=== PATIENT | female | born 1945 | race Caucasian/White ===

== ENCOUNTER → 2016-05-21 | Outpatient (CLI) | payer MEDICARE ==
[2015-09-22 11:56] VITALS: BP 105/66
[~2016-05-21] MED LIST: ACET12.53 PO; AMLO5TAB2 PO; ATOR40TA59 PO; LISI-334 PO; NITR0.4T SL; TIZA4TAB PO; TRAM50TA PO; VENL150C PO
--- NOTE | 2016-05-21 14:27 | RAD ---
Left shoulder, 3 views, 05/21/2016: History: Shoulder pain after a fall No fracture or dislocation is identified. There is moderate degenerative change at the glenohumeral articulation. There is mild degenerative change at the AC joint. IMPRESSION: 1. Degenerative changes. 2. No acute bony abnormality is detected.
== END | disposition home or self-care (01) ==
LOC: DXRADRC 11:33
PROVIDERS: ATTEND Physician Assistant Medical
DX: M25.512 Pain in left shoulder (principal)
CPT/HCPCS: 73030

== ENCOUNTER 2017-06-26 19:57 | Emergency (ER) | payer MEDICARE ==
[~2017-06-26] VITALS: Ht 157.5 cm; Wt 69.3 kg
--- NOTE | 2017-06-26 20:06 | ED.ADGEN ---
Past History Past Medical History: CAD, Dementia, Depression, High Cholesterol, Hypertension , Other Past Surgical History: Appendectomy, Cholecystectomy, Coronary Bypass Surgery, Hysterectomy Alcohol Use: None Drug Use: None Adult General Chief Complaint Chief Complaint " .. I don't know... what are we going to do..." Pt. " We were cleaning her up, and changed her underwear... in the process after we cleaned her up.. she passed out.. but I did not let her fall... but we let her sit down... and she was still to weak to stand up...." ".. she get confused off and on.. but she did not really rebound...".. " We know she got bad peripheral vascular disease... and she had her Rt carotid dilated. with a balloon... and they have been keeping her off her clotting meds.. because Dr. Benavidez.. is to do dilation of her arms and legs... They never can get blood pressures on her because her circulation is so bad... ".. " She also had this diarrhea the last few days...She just seems so weak.. " " What ever happens we don't want her admitted here or [place]... Dad there...so she needs to go to [facility]. ...or ... that where she has to go..."Son. HPI HPI Patient is a 71 year old female who presents with above hx and complaints of mental status change and weakness. Patient has had diarrhea last few days. Patient has extensive medical history with coronary artery bypass, CHF, renal insufficiency, urinary tract infections, multiple areas of arterial stenosis of arms and legs. Patient does have a history of DVTs. Is recently undergone angioplasty of right carotid. Patient recently has been taken off her anticoagulant pending angioplasties of arms and legs. Patient does have history of intermittent episodes of mental status changes per her son's. No recent travel. No history of ill contacts. Normally follows with [facility], Dr. Bynum, Dr. Vinson. Pt. family insistent they did not want her admitted here, but wanted pt to go to or [facility]. No hx of bad foods. Pt had poor intake the last 48 hrs. Sons are her care takers and she lives at home. Review of Systems Review of Systems Constitutional: Denies fever or chills [] Eyes: Denies change in visual acuity, redness, or eye pain [] HENT: Denies nasal congestion or sore throat [] Respiratory: Denies cough or shortness of breath [] Cardiovascular: No additional information not addressed in HPI [] GI: Denies abdominal pain, nausea, vomiting, bloody stools or diarrhea [] : Denies dysuria or hematuria [] Musculoskeletal: Denies back pain or joint pain [. Patient complains of generalized weakness] Integument: Denies rash or skin lesions [] Neurologic: Denies headache, focal weakness or sensory changes [] Endocrine: Denies polyuria or polydipsia [] All other systems were reviewed and found to be within normal limits, except as documented in this note. Family History Family History Noncontributory Current Medications Current Medications Current Medications Medications (Trade) Dose Ordered Sig/Caryn Start Time Stop Time Status Last Admin Dose Admin Ceftriaxone Sodium 1 gm/ Sodium Chloride 50 ml @ 100 mls/hr 1X ONCE 06/26/17 23:30 06/26/17 23:59 Cancel Ceftriaxone Sodium (Rocephin) 1 gm 1X ONCE 06/26/17 23:30 06/26/17 23:31 DC 06/26/17 23:32 1 GM Lactated Ringer's 1,000 ml @ 75 mls/hr 1X ONCE 06/26/17 20:15 06/27/17 01:00 DC 06/26/17 22:43 75 MLS/HR Magnesium Sulfate 50 ml @ 25 mls/hr 1X ONCE 06/26/17 22:30 06/27/17 00:29 DC 06/26/17 22:44 25 MLS/HR Ondansetron HCl (Zofran Odt) 8 mg 1X ONCE 06/26/17 23:00 06/26/17 23:01 DC 06/26/17 22:55 8 MG Potassium Chloride (KCl Oral Soln) 40 meq 1X ONCE 06/26/17 22:30 06/26/17 22:31 DC 06/26/17 22:49 40 MEQ Sodium Chloride 50 ml @ As Directed STK-MED ONCE 06/26/17 23:23 06/26/17 23:24 DC See nursing for home meds Allergies Allergies Allergies Coded Allergies Type Severity Reaction Last Updated Verified iodine Allergy Severe sob 06/26/17 Yes morphine Allergy Intermediate gi/rash 06/26/17 Yes Physical Exam Physical Exam Constitutional: no acute distress, non-toxic appearance. [] HENT: Normocephalic, atraumatic, bilateral external ears normal, oropharynx moist, no oral exudates, nose normal. []Poor dentition Eyes: PERRLA, EOMI, conjunctiva normal, no discharge. [] Neck: Normal range of motion, no tenderness, supple, no stridor. No bruits appreciated Cardiovascular: Bradycardia Heart rate regular rhythm, no murmur []PMI to the left Lungs & Thorax: Bilateral breath sounds with a few scattered wheezes with breath sounds equal at apexes on auscultation []midline sternotomy scar Abdomen: Bowel sounds are hyperactive, soft, no tenderness, no masses, no pulsatile masses. []Multiple old scars. Skin: Warm, dry, no erythema, no rash. Poor turgor. Sacral breakdown. Capillary refill more than 3 second in hand and feet. Very min. pulse in feet and wrist- but equal to each other. Back: No tenderness, no CVA tenderness. [] Extremities: No tenderness, no cyanosis, no clubbing, ROM intact, no edema. 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 Moves all ext. on command. Psychologic: Affect anxious, judgement normal, mood depressed Current Patient Data Vital Signs Vital Signs Date Time Temp Pulse Resp B/P (MAP) Pulse Ox O2 Delivery O2 Flow Rate FiO2 06/27/17 00:04 78 24 85/48 (60) 98 Nasal Cannula 2.0 06/26/17 20:28 97.9 Lab Results Laboratory Tests Test 06/26/17 21:00 White Blood Count 12.5 x10^3/uL (4.0-11.0) H Red Blood Count 4.31 x10^6/uL (3.50-5.40) Hemoglobin 12.2 g/dL (12.0-15.5) Hematocrit 36.0 % (36.0-47.0) Mean Corpuscular Volume 84 fL (79-100) Mean Corpuscular Hemoglobin 28 pg (25-35) Mean Corpuscular Hemoglobin Concent 34 g/dL (31-37) Red Cell Distribution Width 20.4 % (11.5-14.5) H Platelet Count 403 x10^3/uL (140-400) H Neutrophils (%) (Auto) 87 % (31-73) H Lymphocytes (%) (Auto) 8 % (24-48) L Monocytes (%) (Auto) 5 % (0-9) Eosinophils (%) (Auto) 0 % (0-3) Basophils (%) (Auto) 0 % (0-3) Neutrophils # (Auto) 10.8 x10^3uL (1.8-7.7) H Lymphocytes # (Auto) 1.0 x10^3/uL (1.0-4.8) Monocytes # (Auto) 0.6 x10^3/uL (0.0-1.1) Eosinophils # (Auto) 0.0 x10^3/uL (0.0-0.7) Basophils # (Auto) 0.0 x10^3/uL (0.0-0.2) Toxic Vacuolation Mod Platelet Estimate Adequate (ADEQUATE) Polychromasia Mod Anisocytosis Mod Prothrombin Time 11.0 SEC (9.4-11.4) Prothrombin Time INR 1.1 (0.9-1.1) PTT 23 SEC (23-33) Urine Collection Type Unknown Urine Color Yellow Urine Clarity Cloudy Urine pH 6.0 Urine Specific [place] 1.015 Urine Protein Neg (NEG-TRACE) Urine Glucose (UA) Neg mg/dL (NEG) Urine Ketones (Stick) Neg mg/dL (NEG) Urine Blood Neg (NEG) Urine Nitrite Pos (NEG) Urine Bilirubin Neg (NEG) Urine Urobilinogen Dipstick 1 mg/dL (0.2 mg/dL) Urine Leukocyte Esterase Trace (NEG) Urine RBC Occ /HPF (0-2) Urine WBC 11-20 /HPF (0-4) Urine Squamous Epithelial Cells Occ /LPF Urine Bacteria Many /HPF (0-FEW) Sodium Level 134 mmol/L (136-145) L Potassium Level 2.2 mmol/L (3.5-5.1) *L Chloride Level 94 mmol/L (98-107) L Carbon Dioxide Level 28 mmol/L (21-32) Anion Gap 12 (6-14) Blood Urea Nitrogen 17 mg/dL (7-20) Creatinine 1.9 mg/dL (0.6-1.0) H Estimated GFR (Cockcroft-Gault) 26.0 Glucose Level 101 mg/dL (70-99) H Calcium Level 8.9 mg/dL (8.5-10.1) Magnesium Level 1.5 mg/dL (1.8-2.4) L Creatine Kinase 196 U/L (26-192) H Creatine Kinase MB (Mass) 1.6 ng/mL (0.0-3.6) Creatine Kinase MB Relative Index 0.8 % (0-4) Troponin I Quantitative 0.044 ng/mL (0-0.055) JU-Hmv-A-Type Natriuretic Peptide 2206 pg/mL (0-124) H Urine Opiates Screen Neg (NEG) Urine Methadone Screen Neg (NEG) Urine Barbiturates Neg (NEG) Urine Phencyclidine Screen Neg (NEG) Urine Amphetamine/Methamphetamine Neg (NEG) Urine Benzodiazepines Screen Neg (NEG) Urine Cocaine Screen Neg (NEG) Urine Cannabinoids Screen Neg (NEG) Urine Ethyl Alcohol Neg (NEG) EKG EKG My interpretation of EKG shows a sinus rhythm at 60 bpm. ([place]. Prolonged QT. No findings acute STEMI with contralateral changes.[] Radiology/Procedures Radiology/Procedures My interpretation of chest x-ray shows mild cephalization. Borderline cardiac silhouette. No free air in the diaphragm. Multiple old dionicio and surgery findings. Degenerative joint changes. Marked degenerative joint changes right shoulder. Midline sternotomy wires. My interpretation CT of head shows no shift, mass, edema, bleed, or fracture. There is findings of white matter disease changes. There is marked cerebellar volume loss. See formal report when available[] Course & Med Decision Making Course & Med Decision Making Pertinent Labs and Imaging studies reviewed. (See chart for details). Will hold aggressive diuresis due to hypotension and severe hypokalemia. Discussed presentation, testing and treatment with transfer team-Triny CRUZ. Will be accepted in transfer to Dr. Nitin Gautam. [] Final Impression Final Impression 1. Mental Status Change[] 2. Near Syncope 3. Severe hypokalemia- potassium 2.2 4. Generalized weakness and deconditioning 5. Elevated creatinine 6. Leukocytosis 7. Urinary tract infection 8. CHF- BNP 2206- 9. Diarrhea 10. Hx. Dementia 11. Hx. Severe PVDz 12. Hypomagnesium 13. COPD- Oxygen Dependent 2 Lit. 14. Elevated CK 15. Hx. CADz Problems: Dragon Disclaimer Dragon Disclaimer This electronic medical record was generated, in whole or in part, using a voice recognition dictation system. FRANKLYN JIMENEZ MD Jun 26, 2017 20:06
[2017-06-26] MEDS ORDERED: IV RINGERS SOLUTION,LACTATED 1,000 ML IV ONE (20:15)
[2017-06-26] MEDS ORDERED: ZONI100C PO (20:19)
[2017-06-26] MEDS ORDERED: VIT PO (20:19)
[2017-06-26] MEDS ORDERED: DULO60CA6 PO (20:19)
[2017-06-26] MEDS ORDERED: CYAN10002 IJ (20:19)
[2017-06-26] MEDS ORDERED: CALCIUM 600 MG PO (20:19)
--- NOTE | 2017-06-26 20:49 | RAD ---
EXAM: Head CT without contrast. HISTORY: Confusion. TECHNIQUE: Computed tomographic images of the head were obtained without contrast. *One or more of the following individualized dose reduction techniques were utilized for this examination: 1. Automated exposure control. 2. Adjustment of the mA and/or kV according to patient size. 3. Use of iterative reconstruction technique. COMPARISON: 09/21/2015. FINDINGS: There is no acute or subacute extra-axial or intraparenchymal hemorrhage. There is no mass effect or midline shift. There is no hydrocephalus. There are areas of decreased attenuation within the cerebral white matter, nonspecific and likely related to chronic small vessel disease. There is cerebral volume loss. The visualized portions of the orbits, paranasal sinuses and mastoid air cells are unremarkable. No suspicious calvarial lesion is seen. IMPRESSION: 1. No acute intracranial finding. Note is made that MRI is more sensitive for acute infarction. 2. Decreased attenuation within the cerebral white matter, likely due to chronic small vessel disease. Electronically signed by: Shauna Riddle MD (06/26/2017 8:45 PM) [facility]
[2017-06-26 21:40] LABS: BASO % 0 % (0-3); EOS % 0 % (0-3); HEMOGLOBIN 12.2 g/dL (12.0-15.5); LYMPH % 8 % (24-48); MEAN CORPUSCULAR HEMOGLOBIN 28 pg (25-35); MEAN CORPUSCULAR HGB CONC 34 g/dL (31-37); MEAN CORPUSCULAR VOLUME 84 fL (79-100); MONO # 0.6 x10^3/uL (0.0-1.1); MONO % 5 % (0-9); NEUT # 10.8 x10^3uL (1.8-7.7); NEUT % 87 % (31-73); PLATELET COUNT 403 x10^3/uL (140-400); RED BLOOD COUNT 4.31 x10^6/uL (3.50-5.40); RED CELL DISTRIBUTION WIDTH 20.4 % (11.5-14.5); WHITE BLOOD COUNT 12.5 x10^3/uL (4.0-11.0)
[2017-06-26 22:08] LABS: CALCIUM 8.9 mg/dL (8.5-10.1); CREATININE 1.9 mg/dL (0.6-1.0); MAGNESIUM 1.5 mg/dL (1.8-2.4)
[2017-06-26 22:09] LABS: BARBITURATES NEG (NEG); BENZODIAZEPINES NEG (NEG); CANNABINOIDS NEG (NEG); COCAINE NEG (NEG); METHADONE NEG (NEG); OPIATES NEG (NEG); PHENCYCLIDINE NEG (NEG)
[2017-06-26 22:10] LABS: POTASSIUM 2.2 mmol/L (3.5-5.1)
[2017-06-26 22:14] LABS: AMPHETAMINE/METHAMPHETAMINE NEG (NEG)
[2017-06-26] MEDS ORDERED: POTASSIUM CHLORIDE 20 MEQ/15 ML ORAL LIQUID. PO ONE (22:30)
[2017-06-26] MEDS ORDERED: MAGNESIUM SULFATE 2GM 50 ML IV ONE (22:30)
[2017-06-26 22:59] LABS: BILIRUBIN,URINE NEG (NEG); CLARITY,URINE CLOUDY; COLOR,URINE YELLOW; GLUCOSE,URINE NEG (NEG); NITRITE,URINE POS (NEG); RBC,URINE OCC /HPF (0-2); UROBILINOGEN,URINE 1 mg/dL (0.2 mg/dL)
[2017-06-26 23:00] LABS: BACTERIA,URINE MANY /HPF (0-FEW); SQUAMOUS EPITHELIAL CELL,UR OCC /LPF
[2017-06-26] MEDS ORDERED: ONDANSETRON ODT 4 MG TAB.RAPDIS PO ONE (23:00)
[2017-06-26 23:22] LABS: ANISOCYTOSIS MOD; PLT ESTIMATE ADEQUATE (ADEQUATE); POLYCHROMASIA MOD
[2017-06-26 23:23] LABS: TOXIC VACUOLATION MOD
[2017-06-26] MEDS ORDERED: IV NORMAL SALINE 50ML 50 ML ONE (23:23)
[2017-06-26] MEDS ORDERED: cefTRIAXone IV Push 1 GM VIAL. IVP ONE (23:30)
--- NOTE | 2017-06-26 23:30 | EKG ---
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
[2017-06-27 00:04] VITALS: BP 85/48
--- NOTE | 2017-06-27 08:16 | RAD ---
Chest, 2 views, 06/26/2017: History: Shortness of breath Comparison is made to a study from 01/16/2016. There has been a previous median sternotomy. The heart size is normal. There is calcific plaquing of the aorta. No pulmonary infiltrate is seen. There is no evidence of pleural fluid. Surgical clips are present in the left upper quadrant of the abdomen. Scattered degenerative changes are present in the spine. Moderate degenerative change is present at both shoulders. IMPRESSION: No acute cardiopulmonary abnormality is detected.
== END 2017-06-27 00:50 | disposition short-term general hospital (02) ==
LOC: ER 19:57
DX: R41.82 Altered mental status, unspecified (principal); R55 Syncope and collapse; E87.6 Hypokalemia; D72.829 Elevated white blood cell count, unspecified; N39.0 Urinary tract infection, site not specified; E83.42 Hypomagnesemia; J44.9 Chronic obstructive pulmonary disease, unspecified; R74.8 Abnormal levels of other serum enzymes; R79.89 Other specified abnormal findings of blood chemistry; F03.90 Unspecified dementia, unspecified severity, without behavioral disturbance, psychotic disturbance, mood disturbance, and anxiety; I25.810 Atherosclerosis of coronary artery bypass graft(s) without angina pectoris; E78.00 Pure hypercholesterolemia, unspecified; I11.0 Hypertensive heart disease with heart failure; I50.9 Heart failure, unspecified; F32.9 Major depressive disorder, single episode, unspecified; Z86.718 Personal history of other venous thrombosis and embolism; Z99.81 Dependence on supplemental oxygen; Z88.5 Allergy status to narcotic agent; Z91.041 Radiographic dye allergy status
CPT/HCPCS: 36415; 51701; 70450; 71046; 80048; 80307; 81001; 82553; 83735; 83880; 84484; 85025; 85610; 85730; 87086; 87186; 93005; 96365; 96366; 96375; 99285; J0696; J3475; J7120; Q0162; 87324; 99152; G0479

== ENCOUNTER 2017-08-11 08:44 | Inpatient (IN) | payer MEDICARE ==
[~2017-08-11] VITALS: Ht 157.5 cm; Wt 66.5 kg
[~2017-08-11 08:44] MED LIST changes: +CALCIUM 600 MG PO; +CYAN10002 IJ; +DULO60CA6 PO; +VIT PO; +ZONI100C PO
[2017-08-11 09:28] LABS: BASO # 0.1 x10^3/uL (0.0-0.2); BASO % 1 % (0-3); EOS # 0.1 x10^3/uL (0.0-0.7); EOS % 1 % (0-3); HEMATOCRIT 33.1 % (36.0-47.0); HEMOGLOBIN 11.2 g/dL (12.0-15.5); LYMPH # 1.7 x10^3/uL (1.0-4.8); LYMPH % 11 % (24-48); MEAN CORPUSCULAR HEMOGLOBIN 30 pg (25-35); MEAN CORPUSCULAR HGB CONC 34 g/dL (31-37); MEAN CORPUSCULAR VOLUME 89 fL (79-100); MONO # 0.5 x10^3/uL (0.0-1.1); MONO % 3 % (0-9); NEUT # 13.1 x10^3uL (1.8-7.7); NEUT % 85 % (31-73); PLATELET COUNT 338 x10^3/uL (140-400); RED BLOOD COUNT 3.74 x10^6/uL (3.50-5.40); RED CELL DISTRIBUTION WIDTH 15.8 % (11.5-14.5); WHITE BLOOD COUNT 15.5 x10^3/uL (4.0-11.0)
[2017-08-11 09:42] LABS: ALBUMIN 2.8 g/dL (3.4-5.0); ALBUMIN/GLOBULIN RATIO 0.9 (1.0-1.7); CALCIUM 9.2 mg/dL (8.5-10.1); CREATININE 1.5 mg/dL (0.6-1.0); GFR 34.1; POTASSIUM 3.1 mmol/L (3.5-5.1); TOTAL BILIRUBIN 0.5 mg/dL (0.2-1.0); TOTAL PROTEIN 5.8 g/dL (6.4-8.2)
[2017-08-11 09:48] LABS: BACTERIA,URINE FEW /HPF (0-FEW); BILIRUBIN,URINE NEG (NEG); CLARITY,URINE CLEAR; COLOR,URINE YELLOW; GLUCOSE,URINE NEG (NEG); HYALINE CASTS, URINE FEW /HPF; NITRITE,URINE NEG (NEG); RBC,URINE OCC /HPF (0-2); SQUAMOUS EPITHELIAL CELL,UR FEW /LPF; UROBILINOGEN,URINE 0.2 mg/dL (0.2 mg/dL)
[2017-08-11 10:17] LABS: % BANDS 1 % (0-9); % EOS 1 % (0-5); % LYMPHS 18 % (24-48); % MONOS 1 % (0-10); % SEGS 79 % (35-66); NUCLEATED RBC 1; PLATELET CLUMP PRESENT; PLT ESTIMATE ADEQUATE (ADEQUATE)
--- NOTE | 2017-08-11 10:45 | ED.ADGEN ---
Past History Past Medical History: Depression, GERD, High Cholesterol, Other Past Surgical History: Other Alcohol Use: None Drug Use: None Adult General Chief Complaint Chief Complaint Accidental fall [facility] HPI Patient is a 71-year-old [place] rehabilitation patient resents with unwitnessed fall from chair. Patient reportedly slid from chair and rested on the floor. Denies hitting her head, headache, neck pain or injury. Currently on Plavix. Patient denies any symptoms or complaints but was referred to the emergency department per [facility] protocol. Patient has been at the [facility] for the past several days after being treated for UTI with sepsis at or below in [facility]. Patient denies fever chills, nausea vomiting or sweats. No urinary frequency urgency. No other acute symptoms or complaints. Additional history per EMS and the patient's adult children.[] Review of Systems Review of Systems ROS as per HPI All other systems were reviewed and found to be within normal limits, except as documented in this note. Allergies Allergies Allergies Coded Allergies Type Severity Reaction Last Updated Verified iodine Allergy Severe sob 06/26/17 Yes morphine Allergy Intermediate gi/rash 06/26/17 Yes Physical Exam Physical Exam Constitutional: Well developed, well nourished, no acute distress, non-toxic appearance. [] HENT: Normocephalic, atraumatic, bilateral external ears normal, oropharynx moist, nose normal. [] Eyes: PERRLA, EOMI, conjunctiva normal. [] Neck: Normal range of motion, no midline tenderness. [] Cardiovascular:Heart rate regular rhythm, no murmur, 1+ bipedal edema[] Lungs & Thorax: Bilateral breath sounds clear to auscultation [] Abdomen: Bowel sounds normal, soft, no tenderness. [] Skin: Warm, dry. [] Back: No tenderness. [] Extremities: No bruising on wrists and hands.[] Neurologic: Alert and oriented to person, normal motor function, normal sensory function, no focal deficits noted. [] Psychologic: Affect normal, judgement normal, mood normal. [] Current Patient Data Vital Signs Vital Signs Date Time Temp Pulse Resp B/P (MAP) Pulse Ox O2 Delivery O2 Flow Rate FiO2 08/11/17 08:44 97.4 52 18 99 Room Air Lab Results Laboratory Tests Test 08/11/17 09:15 6/11/18 09:25 White Blood Count 15.5 x10^3/uL (4.0-11.0) H Red Blood Count 3.74 x10^6/uL (3.50-5.40) Hemoglobin 11.2 g/dL (12.0-15.5) L Hematocrit 33.1 % (36.0-47.0) L Mean Corpuscular Volume 89 fL (79-100) Mean Corpuscular Hemoglobin 30 pg (25-35) Mean Corpuscular Hemoglobin Concent 34 g/dL (31-37) Red Cell Distribution Width 15.8 % (11.5-14.5) H Platelet Count 338 x10^3/uL (140-400) Neutrophils (%) (Auto) 85 % (31-73) H Lymphocytes (%) (Auto) 11 % (24-48) L Monocytes (%) (Auto) 3 % (0-9) Eosinophils (%) (Auto) 1 % (0-3) Basophils (%) (Auto) 1 % (0-3) Neutrophils # (Auto) 13.1 x10^3uL (1.8-7.7) H Lymphocytes # (Auto) 1.7 x10^3/uL (1.0-4.8) Monocytes # (Auto) 0.5 x10^3/uL (0.0-1.1) Eosinophils # (Auto) 0.1 x10^3/uL (0.0-0.7) Basophils # (Auto) 0.1 x10^3/uL (0.0-0.2) Segmented Neutrophils % 79 % (35-66) H Band Neutrophils % 1 % (0-9) Lymphocytes % 18 % (24-48) L Monocytes % 1 % (0-10) Eosinophils % 1 % (0-5) Nucleated Red Blood Cells 1 Platelet Estimate Adequate (ADEQUATE) Platelet Clumps, EDTA Present Sodium Level 129 mmol/L (136-145) L Potassium Level 3.1 mmol/L (3.5-5.1) L Chloride Level 96 mmol/L (98-107) L Carbon Dioxide Level 24 mmol/L (21-32) Anion Gap 9 (6-14) Blood Urea Nitrogen 22 mg/dL (7-20) H Creatinine 1.5 mg/dL (0.6-1.0) H Estimated GFR (Cockcroft-Gault) 34.1 BUN/Creatinine Ratio 15 (6-20) Glucose Level 98 mg/dL (70-99) Calcium Level 9.2 mg/dL (8.5-10.1) Total Bilirubin 0.5 mg/dL (0.2-1.0) Aspartate Amino Transferase (AST) 13 U/L (15-37) L Alanine Aminotransferase (ALT) 19 U/L (14-59) Alkaline Phosphatase 216 U/L (46-116) H Creatine Kinase 127 U/L (26-192) Troponin I Quantitative < 0.017 ng/mL (0-0.055) Total Protein 5.8 g/dL (6.4-8.2) L Albumin 2.8 g/dL (3.4-5.0) L Albumin/Globulin Ratio 0.9 (1.0-1.7) L Urine Collection Type U cath Urine Color Yellow Urine Clarity Clear Urine pH 5.0 Urine Specific [place] 1.010 Urine Protein Trace (NEG-TRACE) Urine Glucose (UA) Neg mg/dL (NEG) Urine Ketones (Stick) Neg mg/dL (NEG) Urine Blood Neg (NEG) Urine Nitrite Neg (NEG) Urine Bilirubin Neg (NEG) Urine Urobilinogen Dipstick 0.2 mg/dL (0.2 mg/dL) Urine Leukocyte Esterase Neg (NEG) Urine RBC Occ /HPF (0-2) Urine WBC 1-4 /HPF (0-4) Urine Squamous Epithelial Cells Few /LPF Urine Bacteria Few /HPF (0-FEW) Urine Hyaline Casts Few /HPF Urine Mucus Slight /LPF EKG EKG EKG: Sinus bradycardia, rate 47, no acute ST-T wave changes, QTC 446. Interpretation by this physician.[] Radiology/Procedures Radiology/Procedures [Chest x-ray: No acute cardiopulmonary disease on preliminary ED review] Course & Med Decision Making Course & Med Decision Making Pertinent Labs and Imaging studies reviewed. (See chart for details) [Patient with brief episode of bradycardia with heart rate in the 30s colic blood pressure in the mid 110s. Denies symptoms in the emergency department. Review of labs reveals low potassium and sodium level. Potassium, IV fluids given. Elevated white blood cell count without obvious source of infection. Patient is afebrile. Will admit to the hospital service for further evaluation and treatment.] Final Impression Final Impression [1. generalized weakness] 2. hypokalemia 3. hyponatremia 4. bradycardia Dragon Disclaimer Dragon Disclaimer This electronic medical record was generated, in whole or in part, using a voice recognition dictation system. LUPE LAU DO Aug 11, 2017 10:45
[2017-08-11] MEDS ORDERED: POTASSIUM CHLORIDE 20 MEQ TABLET.ER. PO ONE (11:00)
[2017-08-11] MEDS ORDERED: IV NORMAL SALINE 500ML 500 ML IV ONE (11:00)
[2017-08-11] MEDS ORDERED: ONDANSETRON PF 4 MG/2 ML VIAL. IV PRN (11:30)
[2017-08-11 13:42] VITALS: BP 166/86
--- NOTE | 2017-08-11 13:45 | NUR ---
The patient, SLY RUFFIN, 71 y/o, F admitted by RHIANNON PANIAGUA MD, was given written information regarding hospital policies, unit procedures and contact persons. Patient admitted to room 124 from the ED and arrived at approx. 1300 via EMS. Valuables were checked and left in room with patient. Vital signs assessed and pt oriented to the room.
[2017-08-11] MEDS ORDERED: MAGN400T3 PO (14:08)
[2017-08-11] MEDS ORDERED: ACET-704 PO (14:08)
[2017-08-11] MEDS ORDERED: LISI-334 PO (14:08)
[2017-08-11] MEDS ORDERED: AMLO5TAB2 PO (14:08)
[2017-08-11] MEDS ORDERED: CLOP75TA57 PO (14:08)
[2017-08-11] MEDS ORDERED: SUCR1TAB35 PO (14:08)
[2017-08-11] MEDS ORDERED: ACET500T68 PO (14:08)
[2017-08-11] MEDS ORDERED: PROP10TA PO (14:08)
[2017-08-11] MEDS ORDERED: CALC1CAP7 PO (14:08)
[2017-08-11] MEDS ORDERED: OMEP20CA9 PO (14:08)
[2017-08-11 15:00] VITALS: BP 134/80
--- NOTE | 2017-08-11 15:50 | EKG ---
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
[2017-08-11] MEDS ORDERED: NITROGLYCERIN SUBLINGUAL 0.4 MG BOTTLE OF 25. SL PRN (16:15)
[2017-08-11] MEDS ORDERED: traMADol 50 MG TABLET PO PRN (16:15)
[2017-08-11] MEDS ORDERED: ACETAMINOPHEN/CODEINE 300/30MG TABLET PO PRN (16:30)
[2017-08-11] MEDS ORDERED: MAGNESIUM SULFATE 2GM 50 ML IV ONE (16:30)
[2017-08-11] MEDS ORDERED: ACETAMINOPHEN 500 MG TABLET PO PRN (16:30)
[2017-08-11] MEDS: POTASSIUM CL 20MEQ IN 0.9%NACL 1,000 ML IV SCH (16:31)
--- NOTE | 2017-08-11 20:05 | HP ---
ADMIT DATE: 08/11/2017 HISTORY OF PRESENT ILLNESS: The patient is a 71-year-old female patient whom I have seen recently at [facility] after she was discharged from [facility] with hypertension, hypokalemia, and hypomagnesemia. Her blood pressure was low, which is actually because she has severe peripheral vascular disease. She was treated with IV fluids and replenished her electrolytes and was admitted to [facility] for further rehabilitation. Dr. Benavidez is her harp maker and he is planning to put a stent in one of her either upper or right lower subclavian arteries. PAST MEDICAL HISTORY: Significant for hypertension, hyperlipidemia, diastolic congestive heart failure, coronary artery disease, status post CABG. She has severe peripheral vascular disease. In fact, both radial and dorsalis pedis and tibialis posterior on both feet are not palpable. She has anemia of chronic kidney disease, chronic renal failure stage 3 and also depression, and anxiety. Other medical problems include gastroesophageal reflux disease, history of gastritis and previous history of DVT. PAST SURGICAL HISTORY: Significant for right carotid artery stenting and right leg fracture, status post open reduction and internal fixation and tonsillectomy. She had coronary artery bypass graft surgery, cataract extraction and low back surgery. ALLERGIES: She has no known drug allergies. FAMILY HISTORY: Her mother at the age of 92 of a sudden cardiac . Father at age of 52. SOCIAL HISTORY: She is disabled, retired, who has never smoked. She does not drink alcohol. She lives at home with 2 of her sons and has one more son and ____ daughters. She is mostly wheelchair bound. The patient was basically was admitted as she apparently fell at the custodial and has an unwitnessed fall from a chair. The patient reported she slid from her chair and rested on the floor. The patient denied hitting her head, headache or neck pain or injury. She is on Plavix. She was brought to the Emergency Room as per custodial protocol. However, she was investigated in the Emergency Room and has had lab work as well as imaging studies. Her chemistry showed that she has hyponatremia, hypokalemia, chronic kidney disease, which is normal before. She has anemia with a hemoglobin of 11, hematocrit 33, and her urinalysis was essentially unremarkable. Her chest x-ray was also unremarkable and showed no evidence of any congestive heart failure, infiltrate, pleural effusion or pneumothorax. The patient was admitted to replenish her electrolytes. For some reason, I think her CBC is erroneous because her hemoglobin is really very low and borderline. We will rehydrate her gently, we will start with normal saline with potassium. I would also replenish the magnesium. We will consult the physical and occupational therapy and we will decide the further management accordingly. LABORATORY DATA: In fact her lab work showed that her white cell count was 15,500, hemoglobin 11.2, hematocrit 33, MCV 89 and platelet count of 338,000. Her chemistry was 129, potassium 3.1, chloride 96, bicarbonate 24, anion gap of 9, BUN 22, creatinine 1.5, estimated GFR was 34, glucose was 98, calcium was 9.2. Total bilirubin, AST, ALT, alkaline phosphatase were normal. Her total protein was 5.8, albumin was 2.8. Urinalysis showed the urine was yellow, clear with a pH of 5, specific gravity of 1.010. There was trace of protein. The urine was negative for glucose, ketones, blood, nitrite and bilirubin as well as leukocyte esterase, there are occasional rbc's, 1-4 wbc's, and no bacteria. PHYSICAL EXAMINATION: GENERAL: When I examined her this afternoon, she was resting flat, comfortably in bed, no apparent distress. She denied any complaint except her low back pain. When examining her, she was pale but no jaundice, cyanosis, or thyromegaly. No jugular venous distention. No limb edema. VITAL SIGNS: Her heart rate was 57, blood pressure was 134/80, temperature was 97.3, respiratory rate was 20, and oxygen saturation was 100% on 2 liters of oxygen. HEENT: Showed normocephalic, atraumatic. NECK: Supple. HEART: Showed normal first and second sounds. No gallop, rub or murmur. CHEST: Clear to auscultation. No crepitation or rhonchi. ABDOMEN: Distended, soft, nontender. No guarding or rigidity. No organomegaly. All hernial orifices intact. Bowel sounds normal. NEUROLOGIC: She is awake, alert, responding appropriately. All cranial nerves are intact. EXTREMITIES: She moves extremities without difficulty. She is mostly bed bound. IMPRESSION: In summary, this is a 71-year-old female patient who apparently slid from her wheelchair and was found on the floor. She was brought to the Emergency Room for further evaluation. Her lab work showed that she has hyponatremia, hypokalemia, hypomagnesemia, and chronic renal failure. PLAN: My plan is to replenish her electrolytes and rehydrate her gently. We will start with the normal saline with 20 mEq of potassium chloride as well as magnesium sulfate IV and orally and repeat all her lab works tomorrow. RHIANNON PANIAGUA MD DR: KJ/barbie JOB#: [id number] / [id number]
[2017-08-11 20:21] VITALS: BP 155/71
[2017-08-11] MEDS: VENLAFAXINE XR 37.5 MG CAP.ER.24H. PO SCH (21:15)
[2017-08-11] MEDS: tiZANidine 4 MG TABLET. PO SCH (21:15)
[2017-08-11] MEDS: ATORVASTATIN CALCIUM 20 MG TABLET PO SCH (21:15)
[2017-08-11] MEDS: SUCRALFATE 1 GM TABLET. PO SCH (21:15)
[2017-08-11] MEDS: PROPRANOLOL 10 MG TABLET. PO SCH (21:16)
[2017-08-11] MEDS: ZONISAMIDE 100 MG CAPSULE. PO SCH (21:16)
[2017-08-12] VITALS (7 sets, daily range): BP systolic 89–170; BP diastolic 58–85
[2017-08-12] MEDS: POTASSIUM CL 20MEQ IN 0.9%NACL 1,000 ML IV SCH (06:10)
--- NOTE | 2017-08-12 08:10 | RAD ---
Indication: Cough TECHNIQUE: Portable AP upright chest x-ray COMPARISON: 06/26/2017 FINDINGS: CABG changes noted. Heart is normal in size. Lungs are clear. No pneumothorax or pleural effusion. 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 Surgical clips seen projecting over the left upper quadrant. IMPRESSION: No acute cardiopulmonary process. Electronically signed by: Arben Brown DO (08/12/2017 8:06 AM) [facility]
[2017-08-12 08:23] LABS: BASO % 0 % (0-3); EOS # 0.1 x10^3/uL (0.0-0.7); EOS % 1 % (0-3); HEMOGLOBIN 9.1 g/dL (12.0-15.5); LYMPH # 1.3 x10^3/uL (1.0-4.8); LYMPH % 13 % (24-48); MEAN CORPUSCULAR HEMOGLOBIN 30 pg (25-35); MEAN CORPUSCULAR HGB CONC 34 g/dL (31-37); MEAN CORPUSCULAR VOLUME 87 fL (79-100); MONO # 0.6 x10^3/uL (0.0-1.1); MONO % 6 % (0-9); NEUT # 8.3 x10^3uL (1.8-7.7); NEUT % 80 % (31-73); PLATELET COUNT 302 x10^3/uL (140-400); RED BLOOD COUNT 3.09 x10^6/uL (3.50-5.40); RED CELL DISTRIBUTION WIDTH 15.9 % (11.5-14.5); WHITE BLOOD COUNT 10.3 x10^3/uL (4.0-11.0)
[2017-08-12 08:49] LABS: ALBUMIN 2.3 g/dL (3.4-5.0); CALCIUM 8.5 mg/dL (8.5-10.1); CREATININE 1.2 mg/dL (0.6-1.0); GFR 44.2; MAGNESIUM 2.4 mg/dL (1.8-2.4); POTASSIUM 4.1 mmol/L (3.5-5.1); TOTAL BILIRUBIN 0.4 mg/dL (0.2-1.0); TOTAL PROTEIN 4.7 g/dL (6.4-8.2)
[2017-08-12] MEDS: SUCRALFATE 1 GM TABLET. PO SCH ×2 (09:17→20:58)
[2017-08-12] MEDS: DULoxetine HCL 60 MG CAPSULE.DR PO SCH (09:17)
[2017-08-12] MEDS: ZONISAMIDE 100 MG CAPSULE. PO SCH ×2 (09:17→20:59)
[2017-08-12] MEDS: VENLAFAXINE XR 37.5 MG CAP.ER.24H. PO SCH ×2 (09:17→20:59)
[2017-08-12] MEDS: CALCIUM CARB/VIT D3 500/200 TABLET PO SCH (09:17)
[2017-08-12] MEDS: MAGNESIUM OXIDE 400 MG TABLET PO SCH (09:17)
[2017-08-12] MEDS: LISINOPRIL 20 MG TABLET PO SCH (09:17)
[2017-08-12] MEDS: tiZANidine 4 MG TABLET. PO SCH ×2 (09:17→20:58)
[2017-08-12] MEDS: amLODIPine BESYLATE 5 MG TABLET PO SCH (09:18)
[2017-08-12] MEDS: CLOPIDOGREL BISULFATE 75 MG TABLET PO SCH (09:18)
[2017-08-12] MEDS: PANTOPRAZOLE 40 MG TABLET. PO SCH (09:18)
[2017-08-12] MEDS: PROPRANOLOL 10 MG TABLET. PO SCH ×3 (09:18→20:59)
[2017-08-12] MEDS: ATORVASTATIN CALCIUM 20 MG TABLET PO SCH (20:58)
--- NOTE | 2017-08-12 22:45 | PN ---
DATE: 08/12/2017 SUBJECTIVE: The patient is resting, slightly propped up in bed, sleeping comfortably. On questioning her, she said she was tired, apparently just have finished up bed bath. Nursing staff did not voice any concerns. She has an uneventful night. PHYSICAL EXAMINATION: GENERAL: When I examined her, she looked well, pale, but no jaundice, cyanosis, or thyromegaly. No jugular venous distension. No limb edema. VITAL SIGNS: Her heart rate was 104, blood pressure was 89/61, temperature was 98.7, respiratory rate was 18 and oxygen saturation was 98% on 2 liters of oxygen by nasal cannula. HEAD, EYES, EARS, NOSE AND THROAT: Showed normocephalic, atraumatic. NECK: Supple. HEART: Showed normal first and second heart sounds. No gallop, rub or murmur. CHEST: Clear to auscultation. No crepitation or rhonchi. ABDOMEN: Distended, soft, nontender. No guarding or rigidity. No organomegaly. Hernial orifice intact. Bowel sounds normal. NEUROLOGIC: She is sleepy, but arousable. All her cranial nerves are intact. She moves extremities without difficulty. She is mostly bedbound and chair bound. Her intake over the last 24 hours was 2100, no output was recorded. LABORATORY DATA: Her lab work this morning showed serum sodium slightly up at 132, potassium 4.1, chloride 105, bicarbonate 21, anion gap of 6, BUN 18, creatinine 1.2. Estimated GFR was 44 mL per minute. Her glucose was 90. Calcium was 8.5, magnesium was 2.4. Total bilirubin, AST, ALT were normal. Alkaline phosphatase slightly elevated. Her total protein was 4.7, albumin 2.3. White cell count is down to 10,000, hemoglobin 9.1, hematocrit 27, MCV 87 and platelet count of 302,000. ASSESSMENT: Fall without any injury. Apparently, she slid from the wheelchair and was found in the floor. Her CT scan of the head and cervical spine showed no obvious injuries. She has multiple other medical problems including hyponatremia, hypokalemia, hypomagnesemia, acute on chronic kidney injury. She has also severe peripheral vascular disease. Her serum potassium is up to 4.1, magnesium is up to 2.4. Her creatinine is down from 1.4 to 1.2 and her sodium is from 129 up to 132. PLAN: My plan is to cut down her IV fluid to 50 mL per hour. We will repeat her lab work again tomorrow and if the sodium has normalized, she can be discharged back to [facility]. RHIANNON PANIAGUA MD DR: KJ/barbie JOB#: [id number] / [id number]
[2017-08-13] MEDS: POTASSIUM CL 20MEQ IN 0.9%NACL 1,000 ML IV SCH ×2 (02:14→18:23)
[2017-08-13 05:14] VITALS: BP 138/67
[2017-08-13 06:53] LABS: HEMATOCRIT 26.4 % (36.0-47.0); RED CELL DISTRIBUTION WIDTH 15.8 % (11.5-14.5); WHITE BLOOD COUNT 8.7 x10^3/uL (4.0-11.0)
[2017-08-13 06:56] LABS: CALCIUM 8.4 mg/dL (8.5-10.1); CREATININE 1.2 mg/dL (0.6-1.0); GFR 44.2; MAGNESIUM 2.2 mg/dL (1.8-2.4); POTASSIUM 4.8 mmol/L (3.5-5.1)
[2017-08-13] MEDS: CALCIUM CARB/VIT D3 500/200 TABLET PO SCH (09:37)
[2017-08-13] MEDS: VENLAFAXINE XR 37.5 MG CAP.ER.24H. PO SCH ×2 (09:38→20:44)
[2017-08-13] MEDS: CLOPIDOGREL BISULFATE 75 MG TABLET PO SCH (09:39)
[2017-08-13] MEDS: amLODIPine BESYLATE 5 MG TABLET PO SCH (09:40)
[2017-08-13] MEDS: tiZANidine 4 MG TABLET. PO SCH ×2 (09:40→20:45)
[2017-08-13] MEDS: LISINOPRIL 20 MG TABLET PO SCH (09:40)
[2017-08-13] MEDS: SUCRALFATE 1 GM TABLET. PO SCH ×2 (09:41→20:45)
[2017-08-13] MEDS: PANTOPRAZOLE 40 MG TABLET. PO SCH (09:41)
[2017-08-13] MEDS: MAGNESIUM OXIDE 400 MG TABLET PO SCH (09:41)
[2017-08-13] MEDS: DULoxetine HCL 60 MG CAPSULE.DR PO SCH (09:41)
[2017-08-13] MEDS: PROPRANOLOL 10 MG TABLET. PO SCH ×3 (09:42→20:46)
[2017-08-13] MEDS: ZONISAMIDE 100 MG CAPSULE. PO SCH ×2 (09:42→20:45)
[2017-08-13 11:15] VITALS: BP 134/77
--- NOTE | 2017-08-13 15:07 | DS ---
DATE OF DISCHARGE: 08/13/2017 HOSPITAL COURSE: The patient is a 72-year-old female patient who came from [facility] after she apparently slid from her chair and there was no obvious injury and extensive examination showed no evidence of any injury; however, her lab work showed that she has hyponatremia, hypokalemia and hypomagnesemia as well as acute on chronic kidney injury. The patient was rehydrated gently with normal saline with potassium chloride. She remained hemodynamically stable throughout and as her electrolytes and kidney function improved, the decision was made to discharge her back to [facility] to continue the process of rehabilitation. PHYSICAL EXAMINATION: GENERAL: When I saw her this afternoon, she looked well and was sitting propped up, eating her lunch comfortably, in no apparent distress. No complaints offered and the nursing staff did not voice any concerns. She had an uneventful night. When I examined her, she was pale, but no jaundice, cyanosis, lymphadenopathy or thyromegaly. No jugular venous distension. No limb edema. VITAL SIGNS: Her heart rate was 50, blood pressure was 134/77, temperature was 97.6, respiratory rate was 18, and oxygen saturation 100% on 2 liters of oxygen. HEAD, EYES, EARS, NOSE AND THROAT: Normocephalic, atraumatic. NECK: Supple. HEART: Showed normal first and second sounds. No gallop, rub or murmur. CHEST: Clear to auscultation. No crepitation or rhonchi. ABDOMEN: Distended, soft, nontender. NEUROLOGIC: She is awake, alert, responding appropriately. All cranial nerves intact. She moves upper extremities to much a good extent. She is mostly bedbound, chair bound. Her intake over the last 24 hours 1640 and no output was recorded. LABORATORY DATA: This morning showed a serum sodium 135, potassium 4.8, chloride 104, bicarbonate 22, anion gap of 9, BUN 16, creatinine was 1.2, estimated GFR was 44 mL per minute. Her glucose was 83, calcium was 8.4, magnesium was 2.2. Her total bilirubin, AST, ALT were normal. Alkaline phosphatase slightly elevated. Total protein 4.7, albumin 2.3. Her white cell count was 8700, hemoglobin 9, hematocrit 26, MCV 88 and platelet count 293. DISCHARGE MEDICATIONS: She was discharged back to [facility] to continue on following medication: Tylenol 500 mg every 6 hours, Tylenol with Codeine 1 tablet every 6 hours as needed, amlodipine 5 mg once a day, atorvastatin 40 mg at bedtime, calcium carbonate with vitamin D one tablet once a day, Plavix 75 mg once a day, duloxetine for Cymbalta 60 mg once a day, lisinopril 20 mg once a day, magnesium oxide 400 mg once a day, nitroglycerin 0.4 mg sublingually as needed for chest pain every 5 minutes x 3, omeprazole 20 mg once a day, propranolol 10 mg 3 times a day, sucralfate for Carafate 1 gram twice a day, tizanidine 4 mg twice a day, tramadol 50 mg every 6 hours as needed, venlafaxine for Effexor 150 mg twice a day and zonisamide 100 mg twice a day. FINAL DISCHARGE DIAGNOSES: 1. Fall without any obvious injury. Apparently, she slid from her wheelchair and was found on the floor. CT scan of the head and cervical spine showed no obvious injuries: 2. Multiple other medical problems including hyponatremia, resolved. Her serum sodium today is 135. Hypokalemia, resolved. Her potassium is up to 4.5 and hypomagnesemia, resolved. Her serum magnesium this morning was 2.2. 3. Acute kidney injury. Her creatinine came down from 1.5-1.2. PLAN: Discharge her back to [place] to continue the process of rehabilitation. RHIANNON PANIAGUA MD DR: KJ/barbie JOB#: [id number] / [id number]
[2017-08-13 15:24] VITALS: BP 94/69
[2017-08-13 20:36] VITALS: BP 159/85
[2017-08-13] MEDS: ATORVASTATIN CALCIUM 20 MG TABLET PO SCH (20:45)
[2017-08-13 23:40] VITALS: BP 90/53
[2017-08-14 05:35] VITALS: BP 134/90
[2017-08-14] MEDS: SUCRALFATE 1 GM TABLET. PO SCH (09:27)
[2017-08-14] MEDS: amLODIPine BESYLATE 5 MG TABLET PO SCH (09:27)
[2017-08-14] MEDS: DULoxetine HCL 60 MG CAPSULE.DR PO SCH (09:27)
[2017-08-14] MEDS: CLOPIDOGREL BISULFATE 75 MG TABLET PO SCH (09:27)
[2017-08-14] MEDS: MAGNESIUM OXIDE 400 MG TABLET PO SCH (09:27)
[2017-08-14] MEDS: tiZANidine 4 MG TABLET. PO SCH (09:27)
[2017-08-14] MEDS: PANTOPRAZOLE 40 MG TABLET. PO SCH (09:27)
[2017-08-14] MEDS: ZONISAMIDE 100 MG CAPSULE. PO SCH (09:28)
[2017-08-14] MEDS: CALCIUM CARB/VIT D3 500/200 TABLET PO SCH (09:28)
[2017-08-14] MEDS: LISINOPRIL 20 MG TABLET PO SCH (09:28)
[2017-08-14] MEDS: VENLAFAXINE XR 37.5 MG CAP.ER.24H. PO SCH (09:28)
[2017-08-14 09:29] VITALS: BP 134/90
[2017-08-14] MEDS: PROPRANOLOL 10 MG TABLET. PO SCH (09:29)
--- NOTE | 2017-08-14 11:14 | NUR ---
Discharge Note: SLY RUFFIN [address] Discharge instructions and discharge home medications reviewed with Patient and a copy given. All questions have been answered and understanding verbalized. The following instructions and handouts were given: copy of chart sent with transportation company for facility Discontinued lines and drains: Peripheral IV intact. [facility]
== END 2017-08-14 11:16 | disposition home or self-care (01) | DRG 682 ==
LOC: ER 08:44 → 1 SOUTH 10:20
PROVIDERS: ADMIT Internal Medicine; ATTEND Internal Medicine
DX: N17.9 Acute kidney failure, unspecified (principal); E43 Unspecified severe protein-calorie malnutrition; E87.1 Hypo-osmolality and hyponatremia; I13.0 Hypertensive heart and chronic kidney disease with heart failure and stage 1 through stage 4 chronic kidney disease, or unspecified chronic kidney disease; I50.30 Unspecified diastolic (congestive) heart failure; E87.6 Hypokalemia; K21.9 Gastro-esophageal reflux disease without esophagitis; E78.00 Pure hypercholesterolemia, unspecified; F32.9 Major depressive disorder, single episode, unspecified; I25.10 Atherosclerotic heart disease of native coronary artery without angina pectoris; I73.9 Peripheral vascular disease, unspecified; N18.3 Chronic kidney disease, stage 3 (moderate); E78.5 Hyperlipidemia, unspecified; F41.9 Anxiety disorder, unspecified; E83.42 Hypomagnesemia; W07.XXXA Fall from chair, initial encounter; Y92.129 Unspecified place in nursing home as the place of occurrence of the external cause; Z79.02 Long term (current) use of antithrombotics/antiplatelets; Z86.718 Personal history of other venous thrombosis and embolism; Y93.89 Activity, other specified; Y99.8 Other external cause status; Z87.440 Personal history of urinary (tract) infections; Z88.5 Allergy status to narcotic agent; Z91.041 Radiographic dye allergy status; Z95.1 Presence of aortocoronary bypass graft; Z90.89 Acquired absence of other organs; Z98.49 Cataract extraction status, unspecified eye; Z82.41 Family history of sudden cardiac death; Z99.3 Dependence on wheelchair; Z68.26 Body mass index [BMI] 26.0-26.9, adult
CPT/HCPCS: 36415; 71045; 80048; 80053; 81001; 82550; 83735; 84484; 85007; 85025; 85027; 87641; 93005; 96360; J3475; J7040; P9612; 97110; 99285-25